=== PATIENT | male | born 1990 | race Two or more races ===

== ENCOUNTER 2018-05-05 15:06 | Emergency (ER) | payer SELFPAY ==
[~2018-05-05] VITALS: Ht 177.8 cm; Wt 73.9 kg
[2018-05-05 15:10] VITALS: BP 130/58
[2018-05-05] MEDS ORDERED: LORAZEPAM 1 MG TABLET PO ONE (15:30)
[2018-05-05] MEDS ORDERED: LORAZEPAM 1 MG TABLET ONE (15:47)
--- NOTE | 2018-05-05 15:55 | NUR ---
Social service consult requested by SUNG Lewis for homelessness. Pt. is a 28 year old male who was brought in to [facility] by rescue ambulance due to meth use. Per ED notes, pt. uses meth at least twice a day. KEENAN met with pt. bedside. Pt. appears disheveled and had his t-shirt covering his mouth and nose. Pt. is rambling nonsensically. SW is unable to asses pt. due to his intoxication. KEENAN informed pt's doctor, JULIUS Liu and VALENTINA Ling regarding pt's disposition. KEENAN informed VALENTINA Ling and pt's JULIUS Liu that homeless resource packet and Homeless Patient Waiver form have been placed in pt's chart. RN will have to follow through in giving homeless resources and having Waiver form signed once pt. is alert and oriented. KEENAN updated Social supervisor [employer] Ghada Jules with the aforementioned information.
--- NOTE | 2018-05-05 18:50 | NUR ---
PT WAS OFFERED HOMELESS RESOURCES AND TAP CARD. PT ELOPED FROM FACILITY USING SIDE DOOR WITHOUT RESOURCES.
--- NOTE | 2018-05-05 18:55 | NUR ---
PT CALLED OUTSIDE AND PROVIDED SHOES BUT REFUSES RESOURCES OR TAP CARD
== END 2018-05-05 18:55 | disposition home or self-care (01) ==
LOC: ER 15:08
DX: F15.10 Other stimulant abuse, uncomplicated (principal)
CPT/HCPCS: 99283; A4606

== ENCOUNTER 2020-07-07 21:51 | Emergency (ER) | payer MEDICAID ==
[~2020-07-07] VITALS: Ht 170.2 cm; Wt 65.8 kg
[2020-07-07 22:05] VITALS: BP 101/75
[2020-07-07] MEDS ORDERED: HYDR15CR41 TP (22:12)
[2020-07-07] MEDS ORDERED: IBUPROFEN 600 MG TABLET ONE (22:13)
[2020-07-07] MEDS ORDERED: IBUPROFEN 600 MG TABLET PO ONE (22:30)
== END 2020-07-07 22:31 | disposition home or self-care (01) ==
LOC: ER 21:53
DX: M79.671 Pain in right foot (principal); M79.672 Pain in left foot; G89.29 Other chronic pain; F10.10 Alcohol abuse, uncomplicated; F17.200 Nicotine dependence, unspecified, uncomplicated; Y90.9 Presence of alcohol in blood, level not specified; Z59.0 Homelessness; Z79.899 Other long term (current) drug therapy